=== PATIENT | male | born 2000 | race Two or more races ===

== ENCOUNTER 2022-04-28 11:30 | Inpatient (IN) | payer OTHER ==
[~2022-04-28] VITALS: Ht 162.6 cm; Wt 61.7 kg
== END 2022-05-02 16:46 | disposition home or self-care (01) | DRG 387 ==
LOC: ER 11:30 → MEDI 19:42 → MEDJ 04-30 09:40
PROVIDERS: ADMIT Internal Medicine; ATTEND Internal Medicine
PROC: BW21YZZ Computerized Tomography (CT Scan) of Abdomen and Pelvis using Other Contrast (ICD-10-PCS; principal; 2022-04-28)
DX: K51.00 Ulcerative (chronic) pancolitis without complications (principal); I88.9 Nonspecific lymphadenitis, unspecified; R10.31 Right lower quadrant pain